=== PATIENT | female | born 1950 | race Caucasian/White ===

== ENCOUNTER → 2019-03-03 17:46 | Outpatient (CLI) | payer MEDICARE ==
[2019-03-07 12:08] LABS: ANA REFLEX - DIRECT Negative (Negative); ANGIOTENSIN CONVERTING ENZYME 20 U/L (14-82)
== END | disposition home or self-care (01) ==
LOC: D.LABREF 17:46
PROVIDERS: ATTEND Internal Medicine Pulmonary Disease
DX: R93.89 Abnormal findings on diagnostic imaging of other specified body structures (principal)

== ENCOUNTER → 2019-08-15 12:29 | Outpatient (CLI) | payer MEDICARE | END | disposition home or self-care (01) | LOC: D.RT 12:29 | PROVIDERS: ATTEND Internal Medicine Pulmonary Disease | DX: R93.89 Abnormal findings on diagnostic imaging of other specified body structures (principal); R06.09 Other forms of dyspnea ==

== ENCOUNTER → 2020-08-13 10:11 | Outpatient (CLI) | payer MEDICARE | END | disposition home or self-care (01) | LOC: D.MRI 10:11 | PROVIDERS: ATTEND Psychiatry & Neurology Neurology | DX: M54.16 Radiculopathy, lumbar region (principal) ==